=== PATIENT | female | born 1965 | race Caucasian/White ===

== ENCOUNTER 2021-06-14 14:58 | Emergency (ER) | payer BC, MEDICAID | END 2021-06-14 15:27 | disposition left against medical advice (07) | LOC: JP.ED 14:58 | DX: Z53.21 Procedure and treatment not carried out due to patient leaving prior to being seen by health care provider (principal) ==

== ENCOUNTER 2021-06-15 10:43 | Emergency (ER) | payer BC, MEDICAID | END 2021-06-15 11:15 | disposition left against medical advice (07) | LOC: JP.ED 10:43 | DX: R09.02 Hypoxemia (principal); Z53.21 Procedure and treatment not carried out due to patient leaving prior to being seen by health care provider ==